=== PATIENT | male | born 1985 | race Caucasian/White ===

== ENCOUNTER → 2016-11-06 09:31 | Outpatient (CLI) | payer OTHER | END | disposition home or self-care (01) | LOC: D.US 09:30 | DX: R10.11 Right upper quadrant pain (principal) ==

== ENCOUNTER → 2016-11-13 07:32 | Outpatient (CLI) | payer OTHER | END | disposition home or self-care (01) | LOC: D.NM 07:32 | DX: R10.11 Right upper quadrant pain (principal) ==

== ENCOUNTER 2016-12-06 15:15 | Day surgery (SDC) | payer OTHER ==
[~2016-12-06] VITALS: Ht 177.8 cm; Wt 101.2 kg
[2016-12-06 10:51] VITALS: BP 121/72; Ht 177.8 cm; Wt 101.2 kg
--- NOTE | 2016-12-06 15:10 | NUR ---
1450 PT EXSCORTED OUT TO CAR VIA WHEELCHAIR WITH DRIVING. DC INSTRUCTS. AND PRESCRIPT IN HANDS. VO PRESCRIPT BY DR HWANG TO PORSHA HALL ON CENTRAL.
[~2016-12-06 15:15] MED LIST: HYDROCODON-ACE1 EAC7 PO
== END 2016-12-06 15:16 | disposition home or self-care (01) ==
LOC: D.OPS 15:15
DX: K80.20 Calculus of gallbladder without cholecystitis without obstruction (principal); Z01.812 Encounter for preprocedural laboratory examination